=== PATIENT | female | born 2005 | race Hispanic/Latino ===

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

== ENCOUNTER 2024-06-16 06:05 | Emergency (ER) | payer OTHER, SELFPAY | END 2024-06-16 06:28 | disposition home or self-care (01) | LOC: CSHERS 06:05 | DX: J06.9 Acute upper respiratory infection, unspecified (principal); B97.89 Other viral agents as the cause of diseases classified elsewhere | CPT/HCPCS: 99283 ==